=== PATIENT | male | born 1970 | race Caucasian/White ===

== ENCOUNTER 2025-01-17 09:27 | Outpatient (CLI) | payer MEDICAID ==
[2025-01-17] MEDS ORDERED: iohexol 300mg/ml 100ml inj. ONE (09:40)
== END 2025-01-17 23:59 | disposition home or self-care (01) ==
LOC: RAD 09:27
PROVIDERS: ATTEND Internal Medicine Infectious Disease
DX: K80.20 Calculus of gallbladder without cholecystitis without obstruction (principal); K65.1 Peritoneal abscess; K82.8 Other specified diseases of gallbladder; Z98.890 Other specified postprocedural states
CPT/HCPCS: 74177; Q9967